=== PATIENT | female | born 1930 | race Caucasian/White ===

== ENCOUNTER 2017-08-07 21:16 | Inpatient (IN) | payer OTHER ==
[~2017-08-07] VITALS: Ht 157.5 cm; Wt 79.4 kg
--- NOTE | ~2017-08-07 | EKG ---
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 : 1930 Requested By: Alejandra Cha Order Number: [id number] MD: Kel Uriostegui Measurements Intervals [place] Rate: 77 P: 64 [place]: 204 QRS: 53 QRSD: 101 T: 264 QT: 388 QTc: 440 Interpretive Statements Sinus rhythm Poor R wave progression ST and T wave abnormality, consider inferolateral ischemia Compared to ECG 12/19/2013 11:14:11 No significant change was found Electronically Signed On 08-08-2017 16:36:16 CDT by Kel Uriostegui [email or web address] <ELECTRONICALLY SIGNED> By: Kel Uriostegui MD, [facility] 08/08/17 1636 24 Kel Uriostegui MD, [facility] /EPI
--- NOTE | ~2017-08-07 | 2DMMODE ---
[facility] [address] [place] [address] 2 D/M-MODE ECHOCARDIOGRAM Name: RANDAL PAYTON PAT Room #: 430-P [facility] IN .R.#: [id number] Admission: 08/07/17 Attend Phys: Lux Oconnor, Discharge: Date of : 32 Date of Service: 08/09/17 1716 Report #: [id number] THIS REPORT FOR: //name// APPROVED REPORT Study performed: 08/09/2017 14:10:59 EXAM: Comprehensive 2D, Doppler, and color-flow Echocardiogram Patient Location: Bedside Room #: 430 Status: routine BSA: 1.81 HR: 68 bpm BP: 158/62 mmHg Other Information Study Quality: Good Indications Congestive Heart Failure Cardiomyopathy 2D Dimensions RVDd: 31.86 mm LVEF(%): 30.97 (>50%) IVSd: 9.08 (7-11mm) LVOT Diam: 19.88 (18-24mm) LVDd: 53.01 mm PWd: 9.99 (7-11mm) Ascending Ao: 23.09 (22-36mm) LVDs: 45.21 (25-40mm) Aortic Root: 26.09 mm IVC: 14.00 mm To's LVEF: 30.97 % Volumes Left Atrial Volume (Systole) Single Plane 4CH: 49.73 mL Single Plane 2CH: 44.42 mL LA ESV Index: 28.00 mL/m2 Aortic Valve AoV Peak Eliseo.: 1.33 m/s AO Peak Gr.: 7.03 mmHg LVOT Max P.27 mmHg LVOT Max V: 1.03 m/s MAGED Vmax: 2.42 cm2 AI Vmax: 3.79 m/s AI Fallon: 2.21 m/s2 AI PHT: 497.21 ms [facility] [place] [address] 2 D/M-MODE ECHOCARDIOGRAM Name: RANDAL PAYTON PAT Room #: 430-P [facility] IN M.R.#: [id number] Admission: 08/07/17 Attend Phys: Lux Oconnor, Discharge: Date of : 32 Date of Service: 08/09/17 1716 Report #: [id number] Mitral Valve E/A Ratio: 0.8 MV Decel. Time: 194.09 ms MV E Max Eliseo.: 0.63 m/s MV A Eliseo.: 0.75 m/s MV PHT: 56.29 ms IVRT: 152.25 ms Pulmonary Valve PV Peak Eliseo.: 0.75 m/s PV Peak Gr.: 2.26 mmHg Pulmonary Vein P Vein S: 0.44 m/s P Vein A: 0.14 m/s P Vein D: 0.30 m/s P Vein A Dur.: 120.0 msec P Vein S/D Ratio: 1.47 Tricuspid Valve TR Peak Eliseo.: 2.22 m/s TR Peak Gr.: 19.76 mmHg PA Pressure: 25.00 mmHg Left Ventricle The left ventricle is normal size. There is global hypokinesis of the left ventricle. There is normal left ventricular wall thickness. Left ventricular systolic function is mildly decreased. LVEF is 40-45%. Grade I - abnormal relaxation pattern. Right Ventricle The right ventricle is normal size. The right ventricular systolic function is normal. Atria The left atrium size is normal. The right atrium size is normal. Aortic Valve The aortic valve is normal in structure. Aortic valve is calcified. Mild aortic regurgitation. There is no aortic valvular stenosis. Mitral Valve The mitral valve is normal in structure. Mild mitral regurgitation. No evidence of mitral valve stenosis. Tricuspid Valve The tricuspid valve is normal in structure. There is trace tricuspid [facility] [address] [place] [address] 2 D/M-MODE ECHOCARDIOGRAM Name: RANDAL PAYTON Room #: 430-P [facility] IN [facility]#: [id number] Admission: 08/07/17 Attend Phys: Lux Oconnor, Discharge: Date of : 32 Date of Service: 08/09/17 1716 Report #: [id number] regurgitation. Estimated PAP 25 mmHg. There is no pulmonary hypertension. Pulmonic Valve The pulmonary valve is normal in structure. Trace pulmonic regurgitation. Great Vessels The aortic root is normal in size. IVC is normal in size and collapses >50% with inspiration. Pericardium There is no pericardial effusion. <Conclusion> The left ventricle is normal size. Left ventricular systolic function is mildly decreased. LVEF is 40-45%. Grade I - abnormal relaxation pattern. The right ventricle is normal size. The left atrium size is normal. The aortic valve is normal in structure. Aortic valve is calcified. Mild aortic regurgitation. There is no aortic valvular stenosis. Mild mitral regurgitation. There is trace tricuspid regurgitation. Estimated PAP 25 mmHg. There is no pulmonary hypertension. There is no pericardial effusion. <ELECTRONICALLY SIGNED> By: Barney Jefferson MD, FACC 08/09/171715 15 15 Barney Jefferson MD, FACC /INF
[~2017-08-07 21:16] MED LIST: ADULT LOW DOSE81 MG PO; ALENDRONATE SOD10 MG PO; ALENDRONATE SOD70 MG PO; CARVEDILOL12.5 MG PO; CITRACAL + BON1 EACH PO; CRESTOR10 MG PO; CRESTOR20 MG PO; EFFIENT10 MG PO; ICAPS TABLET1 EACH PO; LEVOTHYROXIN0.088 MG PO; LISINOPRIL5 MG PO; METOPROLOL PO; NITROGLYCERIN0.4 MG SL; NORVASC10 MG PO; thyroid medication
[2017-08-07 21:17] VITALS: BP 129/59
[2017-08-07] MEDS ORDERED: LEXAPRO 10 MG T10 MG PO (21:21)
[2017-08-07] MEDS ORDERED: LIPITOR10 MG PO (21:22)
[2017-08-07 21:35] LABS: ABSOLUTE NEUTROPHILS 10.1 thou/uL (1.4-8.2); BASOPHILS 0.7 % (0.0-2.0); EOSINOPHILS 1.1 % (0.0-3.0); HEMATOCRIT 44.5 % (37.0-47.0); HEMOGLOBIN 15.5 gm/dL (12.0-15.0); LYMPHOCYTES 10.4 % (24.0-44.0); MCH 35.9 pg (26.0-34.0); MCHC 34.8 g/dL (28.0-37.0); MCV 103.1 fL (80.0-100.0); MONOCYTES 5.8 % (1.0-8.0); PLATELET COUNT 261 thou/uL (150-400); RBC 4.31 mil/uL (4.20-5.00); RDW 13.8 % (10.5-14.5); URINE BLOOD NEGATIVE (Negative); URINE CLARITY CLEAR; URINE COLOR YELLOW; URINE GLUCOSE-RANDOM* NEGATIVE (Negative); URINE KETONES TRACE (Negative); URINE LEUKOCYTES NEGATIVE (Negative); URINE NITRITE NEGATIVE (Negative); URINE PROTEIN (DIPSTICK) NEGATIVE (Negative); URINE SPECIFIC GRAVITY 1.025 (1.005-1.035); WBC 12.3 thou/uL (4.0-11.0)
[2017-08-07 21:37] LABS: ICTOTEST (BILI CONFIRMATORY) Negative (Negative); URINE BILIRUBIN NEGATIVE (Negative)
[2017-08-07 21:39] LABS: CREATININE 1.6 mg/dL (0.6-1.0)
[2017-08-07 21:47] LABS: TOTAL PROTEIN 7.9 g/dL (6.4-8.2); TROPONIN-I 0.07 ng/mL (<0.06)
[2017-08-07] MEDS ORDERED: SYNTHROID50 MCG PO (22:07)
[2017-08-07] MEDS ORDERED: LIPITOR80 MG PO (22:07)
[2017-08-07] MEDS ORDERED: INDAPAMIDE2.5 MG PO (22:07)
[2017-08-07] MEDS ORDERED: ASPIRIN EC81 M1 PO (22:07)
[2017-08-07 23:33] VITALS: BP 105/58
[2017-08-07 23:47] VITALS: BP 105/58
[2017-08-08 04:41] VITALS: BP 143/65
[2017-08-08 06:47] LABS: CREATININE 1.3 mg/dL (0.6-1.0)
[2017-08-08 06:53] LABS: POTASSIUM 2.9 mmol/L (3.5-5.1)
[2017-08-08 07:30] VITALS: BP 147/49
[2017-08-08 13:28] LABS: MAGNESIUM 2.2 mg/dL (1.8-2.4)
[2017-08-08 13:32] LABS: CHOLESTEROL 348 mg/dL (<200); HDL CHOLESTEROL 52 mg/dL (>40); LDL CHOLESTEROL 263 mg/dL (<100); TC:HDL 6.7 Ratio (Not establshd); TRIGLYCERIDE 169 mg/dL (<150); VLDL 34 mg/dL (<40)
[2017-08-08 15:34] VITALS: BP 80/40
[2017-08-08 17:13] VITALS: BP 113/56
[2017-08-08 20:53] VITALS: BP 102/46
[2017-08-09 04:20] VITALS: BP 135/60
[2017-08-09 04:22] VITALS: BP 135/60
[2017-08-09 06:25] LABS: ABSOLUTE NEUTROPHILS 5.3 thou/uL (1.4-8.2); BASOPHILS 0.9 % (0.0-2.0); EOSINOPHILS 2.8 % (0.0-3.0); HEMATOCRIT 40.6 % (37.0-47.0); HEMOGLOBIN 13.9 gm/dL (12.0-15.0); LYMPHOCYTES 16.6 % (24.0-44.0); MCH 35.8 pg (26.0-34.0); MCHC 34.3 g/dL (28.0-37.0); MCV 104.2 fL (80.0-100.0); MONOCYTES 7.8 % (1.0-8.0); PLATELET COUNT 195 thou/uL (150-400); POLYS 71.9 % (36.0-66.0); RDW 13.7 % (10.5-14.5); WBC 7.4 thou/uL (4.0-11.0)
[2017-08-09 06:41] LABS: ALBUMIN 3.1 g/dL (3.4-5.0); CREATININE 1.1 mg/dL (0.6-1.0); TOTAL BILIRUBIN 1.4 mg/dL (<0.1-1.0); TOTAL PROTEIN 6.6 g/dL (6.4-8.2)
[2017-08-09 06:45] LABS: POTASSIUM 2.7 mmol/L (3.5-5.1)
[2017-08-09 07:15] VITALS: BP 158/62
[2017-08-09 13:01] LABS: MAGNESIUM 2.1 mg/dL (1.8-2.4)
[2017-08-09 13:03] LABS: POTASSIUM 3.9 mmol/L (3.5-5.1)
[2017-08-09] MEDS ORDERED: VITAMIN D2000 UNIT PO (13:18)
[2017-08-09] MEDS ORDERED: LIPITOR 20 MG T20 M1 PO (13:18)
[2017-08-09] MEDS ORDERED: B-12 DOTS500 MCG PO (13:19)
[2017-08-09 15:25] VITALS: BP 149/76
[2017-08-09 20:00] VITALS: BP 149/67
[2017-08-10 04:00] VITALS: BP 126/108
[2017-08-10 05:36] LABS: ABSOLUTE NEUTROPHILS 5.7 thou/uL (1.4-8.2); BASOPHILS 0.5 % (0.0-2.0); EOSINOPHILS 2.2 % (0.0-3.0); HEMATOCRIT 41.3 % (37.0-47.0); MCH 35.1 pg (26.0-34.0); MCHC 33.8 g/dL (28.0-37.0); MONOCYTES 10.3 % (1.0-8.0); PLATELET COUNT 183 thou/uL (150-400); RBC 3.98 mil/uL (4.20-5.00); RDW 13.7 % (10.5-14.5); WBC 7.9 thou/uL (4.0-11.0)
[2017-08-10 05:51] LABS: CALCIUM 8.7 mg/dL (8.5-10.1); CREATININE 0.8 mg/dL (0.6-1.0); POTASSIUM 3.1 mmol/L (3.5-5.1)
[2017-08-10 07:05] VITALS: BP 133/48
[2017-08-10] MEDS ORDERED: POTASSIUM20 PO (08:43)
[2017-08-10 20:00] VITALS: BP 134/53
[2017-08-11 04:07] VITALS: BP 148/52
[2017-08-11 07:15] VITALS: BP 137/52
[2017-08-11 12:00] LABS: URINE BILIRUBIN NEGATIVE (Negative); URINE BLOOD TRACE (Negative); URINE COLOR YELLOW; URINE GLUCOSE-RANDOM* NEGATIVE (Negative); URINE KETONES NEGATIVE (Negative); URINE LEUKOCYTES TRACE (Negative); URINE NITRITE POSITIVE (Negative); URINE PROTEIN (DIPSTICK) NEGATIVE (Negative); URINE UROBILINOGEN >= 8.0 E.U./dl (0.2-1.0)
[2017-08-11 12:02] LABS: URINE CLARITY HAZY
[2017-08-11 13:03] LABS: CASTS None Seen /LPF (None Seen)
[2017-08-11 13:04] LABS: BACTERIA >30 Many /HPF (None Seen); CRYSTALS None Seen /LPF (None Seen); SQUAMOUS 0-3 Few /LPF (0-3); URINE RBC 0-2 Rare /HPF (0-2); URINE WBC 6-15 Few /HPF (0-5)
== END 2017-08-11 13:17 | DRG 682 ==
LOC: ER 21:16 → 4E 22:53 → EROBS 22:53 → 4E 23:55
PROVIDERS: Family Medicine; Nurse Practitioner Acute Care; Physician Assistant; Registered Nurse
DX: N17.0 Acute kidney failure with tubular necrosis (principal); G93.40 Encephalopathy, unspecified; I10 Essential (primary) hypertension; E03.9 Hypothyroidism, unspecified; I25.10 Atherosclerotic heart disease of native coronary artery without angina pectoris; E78.5 Hyperlipidemia, unspecified; I25.5 Ischemic cardiomyopathy; E86.0 Dehydration; E87.6 Hypokalemia; T79.6XXA Traumatic ischemia of muscle, initial encounter; W18.39XA Other fall on same level, initial encounter; F32.9 Major depressive disorder, single episode, unspecified; L30.9 Dermatitis, unspecified; Z95.1 Presence of aortocoronary bypass graft; I25.2 Old myocardial infarction; Z90.49 Acquired absence of other specified parts of digestive tract; Z98.42 Cataract extraction status, left eye; Z98.41 Cataract extraction status, right eye; Z86.73 Personal history of transient ischemic attack (TIA), and cerebral infarction without residual deficits; Z79.899 Other long term (current) drug therapy; Z95.5 Presence of coronary angioplasty implant and graft; Z23 Encounter for immunization
CPT/HCPCS: 10183

== ENCOUNTER 2020-08-25 20:41 | Emergency (ER) | payer OTHER ==
[~2020-08-25] VITALS: Ht 152.4 cm; Wt 71.2 kg
--- NOTE | ~2020-08-25 | EMS ---
[address] [address] EMS Patient Care Report Name: RANDAL PAYTON Room #: PRE M.R.#: [id number] Admission: Attend Phys: Discharge: Date of : 32 Report #: [id number] THIS REPORT FOR: //name// Report Transmitted: 08/25/2020 20:22 EMS Care Summary [place], [place]/[facility] Incident [id number] @ 08/25/2020 20:12 Incident Location [address] [place] [address] Patient RANDAL PAYTON Female, 89 Years 1930 Patient Address [address] [place] [address] Patient History Alzheimer's, Patient Allergies No known allergies, Patient Medications Amlodipine, Levothyroxine, Aspirin, Trazodone, Tramadol, Chief Complaint R SIDED FACIAL DROOP Disposition Transported [place] Dispatch Reason Stroke/CVA Transported To [facility] Narrative UPON ARRIVAL PT LATERAL IN BED, APPEARS TO BE SLEEPING. PT ONLY WAKES UP WHEN ROLLED OVER. PT UNABLE TO ANSWER ANY QUESTIONS OR FOLLOW ANY COMMANDS. NURSE STATES PT IS NORMALLY CONFUSED DUE TO ALZHEIMERS BUT IS ABLE TO WALK AND TALK [address] [address] EMS Patient Care Report Name: RANDAL PAYTON Room #: ARIANA Kalpana#: [id number] Admission: Attend Phys: Discharge: Date of : 32 Report #: [id number] ON HER OWN NORMALLY. PT WAS FOUND IN THE MIDDLE OF HER ROOM, NURSES ASSUME SHE WAS WALKING TO BATHROOM AND FELL. PT HAS CONTUSION AND BRUSING TO R SIDE OF FACE AND EYE. PT HAS CLEAR R SIDED FACIAL DROOP. UKNOWN WHEN PT WENT DOWN BUT WAS LAST SEEN AT [facility] AT 1900 AND WAS FINE. PT LIFTED TO COT AND TRANSPORTED TO [facility] WHERE NURSE HAS ALREADY CALLED IN A REPORT TO [facility] AND THEY ARE EXPECTING HER. PT'S RIGHT SIDE APPEARS TO BE WEAKER PT MOVES AROUND. STROKE ALERT CALLED. Initial Vitals @20:26P: 68,BP: 169/69,CO: 2,SpO2: 97, @20:20P: 70,R: 16,Pain: 0/10,GCS: 10,Glucose: 134, @20:37P: 71,R: 16,BP: 166/102,GCS: 11,CO: 1,SpO2: 97,Revised Trauma: 11, Assessments @20:20MENTAL:Confused,SKIN:HEENT:Eyes: Left: Constricted,Eyes: Right: Constricted,Neck/Airway: No Abnormalities,LUNG SOUNDS:General: No Abnormalities,ABDOMEN:General: No Abnormalities,PELVIS//GI:EXTREMITIES:Right Arm: Weakness,Left Arm: No Abnormalities,PULSE:Radial: 2+ Normal,NEURO:Weakness Right-Sided,Facial Droop, Impression Stroke Procedures @20:20ALS AssessmentResponse: UnchangedSucceeded@20:28Saline Lock 0cc (20 ga) Site: Antecubital-LeftResponse: UnchangedFailed@20:35Saline Lock 0cc (20 ga) Site: Hand-RightResponse: UnchangedFailed@20:32Stroke AlertResponse: Unchanged Timeline 20:10,Call Received 20:10,Dispatch Notified 20:12,Dispatched 20:12,En Route 20:18,On Scene 20:19,At Patient 20:20,BP: / M,PULSE: 70,RR: 16 R,SPO2: Ox,ETCO2: ,B,PAIN: 0,GCS: 10, 20:20,ALS Assessment,Response: UnchangedSucceeded, 20:26,BP: 169/69 M,PULSE: 68,RR: R,SPO2: 97 Ox,ETCO2: ,BG: ,PAIN: ,GCS: , 20:28,Saline Lock 0cc 20 ga Site: Antecubital-Left,Response: UnchangedFailed, 20:30,Depart Scene 20:32,Stroke Alert,Response: Unchanged 20:35,Saline Lock 0cc 20 ga Site: Hand-Right,Response: UnchangedFailed, 20:37,BP: 166/102 M,PULSE: 71,RR: 16 R,SPO2: 97 Ox,ETCO2: ,BG: ,PAIN: ,GCS: 11, 20:39,At Destination 21:08,Call Closed [facility] [address] [place] [address] EMS Patient Care Report Name: RANDAL PAYTON PAT Room #: PRE ER M.R.#: [id number] Admission: Attend Phys: Discharge: Date of : 32 Report #: [id number] Disclaimer v1.1 Copyright [employer] This EMS Care Summary contains data elements from the applicable legal record (which may be displayed differently). It is designed to provide pertinent information for the following purposes: continuity of care, clinical quality, and state data reporting. The complete legal record is available to ED staff and administrators of the receiving hospital in [employer]'s Patient Tracker. All data is provided "as is."
[~2020-08-25 20:41] MED LIST changes: +ASPIRIN EC81 M1 PO; +B-12 DOTS500 MCG PO; +INDAPAMIDE2.5 MG PO; +LEXAPRO 10 MG T10 MG PO; +LIPITOR 20 MG T20 M1 PO; +LIPITOR10 MG PO; +LIPITOR80 MG PO; +POTASSIUM20 PO; +SYNTHROID50 MCG PO; +VITAMIN D2000 UNIT PO
[2020-08-25 21:17] LABS: ABSOLUTE NEUTROPHILS 15.5 thou/uL (1.4-8.2); BASOPHILS 0.8 % (0.0-2.0); EOSINOPHILS 0.5 % (0.0-3.0); HEMATOCRIT 44.1 % (37.0-47.0); HEMOGLOBIN 14.5 gm/dL (12.0-15.0); LYMPHOCYTES 14.6 % (24.0-44.0); MCH 31.6 pg (26.0-34.0); MCV 95.8 fL (80.0-100.0); MONOCYTES 5.3 % (1.0-8.0); PLATELET COUNT 281 thou/uL (150-400); POLYS 78.8 % (36.0-66.0); RDW 13.1 % (10.5-14.5); WBC 19.7 thou/uL (4.0-11.0)
[2020-08-25 21:29] LABS: ANION GAP 10 mmol/L (7-16); BUN 14 mg/dL (7-18); CALCIUM 8.8 mg/dL (8.5-10.1); CHLORIDE 104 mmol/L (98-107); CO2 26 mmol/L (21-32); CREATININE 0.9 mg/dL (0.6-1.0); GLUCOSE 171 mg/dL (74-106); POTASSIUM 4.1 mmol/L (3.5-5.1); SODIUM 140 mmol/L (136-145)
[2020-08-25 21:32] LABS: APTT 21.7 Seconds (24.5-32.8); INR 1.01
[2020-08-25 21:36] LABS: ALBUMIN 3.1 g/dL (3.4-5.0); SGOT 25 U/L (15-37); SGPT 25 U/L (14-59); TOTAL BILIRUBIN 0.5 mg/dL (0.2-1.0); TOTAL PROTEIN 7.1 g/dL (6.4-8.2); TROPONIN-I <0.06 ng/mL (<0.06)
[2020-08-25] MEDS ORDERED: ASA81BEC PO (22:46)
[2020-08-25] MEDS ORDERED: NORVASC 2.5 MG2.5 M1 PO (22:46)
[2020-08-25] MEDS ORDERED: CALTRATE-600 W1 EACH PO (22:46)
[2020-08-25] MEDS ORDERED: LEXAPRO20 MG PO (22:48)
[2020-08-25] MEDS ORDERED: MULTIPLE VITAM1 EAC2 PO (22:49)
[2020-08-25] MEDS ORDERED: TRAMADOL 50 MG50 MG PO (22:49)
[2020-08-25] MEDS ORDERED: LEVOTHYROXINE150 MC1 PO (22:49)
[2020-08-25] MEDS ORDERED: DESYREL150 MG PO (22:50)
[2020-08-25 23:51] LABS: URINE BILIRUBIN NEGATIVE (Negative); URINE BLOOD NEGATIVE (Negative); URINE CLARITY CLEAR; URINE COLOR YELLOW; URINE GLUCOSE-RANDOM* NEGATIVE (Negative); URINE KETONES NEGATIVE (Negative); URINE LEUKOCYTES-REFLEX NEGATIVE (Negative); URINE NITRITE-REFLEX NEGATIVE (Negative); URINE PROTEIN (DIPSTICK) NEGATIVE (Negative); URINE SPECIFIC GRAVITY 1.015 (1.005-1.035)
[2020-08-26 01:35] VITALS: BP 187/113
--- NOTE | 2020-08-26 07:41 | EKG ---
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 : 1930 Requested By: Ke Savage Order Number: [id number] MD: Pop Tejada Measurements Intervals [place] Rate: 71 P: 54 [place]: 200 QRS: 51 QRSD: 101 T: -58 QT: 450 QTc: 490 Interpretive Statements Sinus rhythm Supraventricular bigeminy Probable LVH with secondary repol abnrm Anterior Q waves, possibly due to LVH Compared to ECG 08/07/2017 21:25:24 Atrial premature complex(es) now present Left ventricular hypertrophy now present Q waves now present Poor R-wave progression no longer present Possible ischemia no longer present Electronically Signed On 08-26-2020 7:41:27 CDT by Pop Tejada [email or web address] <ELECTRONICALLY SIGNED> By: Pop Tejada MD, FAC 08/26/20 0741 13 13 Pop Tejada MD, [facility] /EPI
== END 2020-08-26 01:45 | disposition short-term general hospital (02) ==
LOC: ER 20:41
PROVIDERS: Emergency Medicine
DX: S02.31XA Fracture of orbital floor, right side, initial encounter for closed fracture (principal); I63.9 Cerebral infarction, unspecified; I10 Essential (primary) hypertension; E03.9 Hypothyroidism, unspecified; E78.5 Hyperlipidemia, unspecified; Z79.82 Long term (current) use of aspirin; Z79.899 Other long term (current) drug therapy; W18.39XA Other fall on same level, initial encounter; Y93.89 Activity, other specified; Y92.89 Other specified places as the place of occurrence of the external cause; Y99.8 Other external cause status